=== PATIENT | female | born 1965 | race Caucasian/White ===

== ENCOUNTER 2022-04-08 15:30 | Outpatient (RCR) | payer BC, SELFPAY ==
--- NOTE | 2022-01-25 16:47 | PTOPEVAL1 ---
Assessment and note entered by Kennedi Cooper, PT, DPT Evaluation Information Assessment Status Evaluation Diagnosis TOS Subjective Information Pt states she has pain in both arms, R>L. She currently is drawing her pain from the base of her R ear down to her thumb and index finger, she is able getting pain in her elbow when using her UEs. She had a nerve release surgery in her R arm in 2019, this helped her pain for about a year. 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 She currently reports tingling on the R from her elbow down, and on the L from her mid forearm down. Reported Pain Level Pain Score 6: Self Report Assessment PT Clinical Summary Janelle presents to therapy today with a diagnosis of TOS. Today she demonstrates good ROM in her cervical and shoulders bilaterally. She demonstrates generalized weakness in her shoulders bilaterally. She has a forward and rounded shoulders and her scapulae are both rotated downwardly. She reports numbness and tingling in her BUEs. Janelle will benefit from skilled physical therapy services to address UE weakness, postural deficits, decreased body awareness, to improve pain, and to strive to a return to baseline function. Plan of Care Interventions Electrical Stimulation,Hot Pack/Cold Pack,Manual Therapy,Neuro Re-education,Patient/Caregiver Educati,Therapeutic Activities,Therapeutic Exercise PT Services Indicated Yes Treatment Frequency and 1x/wk for 6 wks Duration These treatments will address the objective and functional deficits as defined above. The patient will be advanced safely and appropriately in order for the patient to progress towards his/her prior level of function. Additional exercises will be introduced and as well as a comprehensive home exercise program upon discharge, if needed, ?to ensure carryover of functional gains achieved in the clinic. This treatment plan has been reviewed and agreement upon by the patient.
--- NOTE | 2022-03-11 10:57 | PCPTNOTE ---
Patient called & cancelled scheduled appointment this date due to being sick.
--- NOTE | 2022-04-08 16:10 | PTOPDC ---
Assessment and note entered by Kennedi Cooper, PT, DPT Evaluation Information Assessment Status Discharge Diagnosis TOS Subjective Information Pt states she has good days and bad days. Pt states she has improved some of her posture when at work. Pt reports no improvements with physical therapy. Reported Pain Level Pain Score 1: Self Report Assessment PT Clinical Summary Janelle presents to therapy today for her progress report following 5 visits of skilled therapy to treat her radicularly symptoms. Today she demonstrates improved shoulder and cervical mobility as well at shoulder strength. Pt today states it was confirmed on an MRI that she has cervical radiculopathy vs TOS. It was recommended that the patient try a round of therapy later on to treat her neck. She will be discharged at this time and if she would like to try therapy at a later time, she will need a new order. Plan of Care PT Services Indicated No Treatment Frequency and to be discharged Duration
== END 2022-04-11 13:45 | disposition home or self-care (01) ==
LOC: ANHGOSHPT 15:30
DX: G54.0 Brachial plexus disorders (principal)
CPT/HCPCS: 97110; 97112; 97140; 97161; 97530